=== PATIENT | male | born 1965 | race Caucasian/White ===

== ENCOUNTER 2019-02-08 17:09 | Emergency (ER) | payer BC ==
[~2019-02-08] VITALS: Ht 182.8 cm; Wt 100.2 kg
[~2019-02-08 17:09] MED LIST: ASPIRIN ADULT L81 M1 PO; KEFLEX500 MG PO; LEVAQUIN750 MG PO; MOTRIN800 MG PO; Motrin,Rufen800 MG PO; NAPROSYN500 MG PO; NORCO 325 MG-51 TAB PO; PROTONIX40 MG PO; VICODIN ES 7501 TAB PO; ZITHROMAX Z PA250 MG PO
== END 2019-02-08 19:25 | disposition home or self-care (01) ==
LOC: ED 17:09
DX: S61.210A Laceration without foreign body of right index finger without damage to nail, initial encounter (principal); Z87.891 Personal history of nicotine dependence; W22.8XXA Striking against or struck by other objects, initial encounter; Y93.89 Activity, other specified; Y92.89 Other specified places as the place of occurrence of the external cause; Y99.8 Other external cause status

== ENCOUNTER 2019-06-11 20:32 | Emergency (ER) | payer OTHER ==
[~2019-06-11] VITALS: Wt 99.8 kg
[2019-06-11] MEDS ORDERED: Motrin,Rufen800 MG PO (21:45)
== END 2019-06-11 22:24 | disposition home or self-care (01) ==
LOC: ED 20:32
DX: S91.312A Laceration without foreign body, left foot, initial encounter (principal); Z87.891 Personal history of nicotine dependence; W20.8XXA Other cause of strike by thrown, projected or falling object, initial encounter; Y93.89 Activity, other specified; Y92.89 Other specified places as the place of occurrence of the external cause; Y99.8 Other external cause status

== ENCOUNTER 2020-11-12 16:54 | Inpatient (IN) | payer BC ==
[~2020-11-12] VITALS: Ht 182.8 cm; Wt 91.8 kg
[2020-11-12 17:00] VITALS: BP 126/85
[2020-11-12 17:24] LABS: BASO % 0.4 % (0.0-1.0); EOS # 0.1 10*3/uL (0.0-0.4); EOS % 0.9 % (1.0-4.0); HEMATOCRIT 43.8 % (42.0-52.0); LYMPH # 3.3 10*3/uL (1.3-4.4); LYMPH % 31.5 % (27.0-41.0); MEAN CELL VOLUME 89.8 fl (80.0-94.0); MEAN CORPUSCULAR HGB 31.8 pg (27.0-31.0); MEAN CORPUSCULAR HGB CONC 35.4 g/dl (33.0-37.0); MEAN PLATELET VOLUME 9.4 fl (9.6-12.3); MONO # 0.5 10*3/uL (0.1-1.0); MONO % 4.5 % (3.0-9.0); NEUT # 6.4 10*3/uL (2.3-7.9); NEUT % 62.1 % (47.0-73.0); PLATELET COUNT AUTOMATED 252 10*3/uL (130-400); RED BLOOD COUNT 4.88 10*6/uL (4.50-5.90); RED CELL DISTRI WIDTH 12.1 % (0-14.5); WHITE BLOOD COUNT 10.3 10*3/uL (4.8-10.8)
[2020-11-12 17:44] LABS: ALBUMIN 4.2 gm/dl (3.1-4.5); ALKALINE PHOSPHATASE 64 U/L (45-117); BUN 20 mg/dl (7-24); CHLORIDE 106 mmol/L (98-107); CREATININE 1.38 mg/dL (0.70-1.30); POTASSIUM 3.3 mmol/L (3.5-5.1); SGOT/AST 13 IU/L (3-35); SGPT/ALT 22 U/L (12-78); SODIUM 139 mmol/L (136-145); TOTAL PROTEIN 7.5 gm/dL (6.4-8.2)
[2020-11-12 17:45] LABS: TROPONIN I < 0.015 ng/ml (<0.045)
[2020-11-12 18:00] VITALS: BP 116/80
[2020-11-12 19:57] VITALS: BP 116/75
[2020-11-12] MEDS ORDERED: SINGULAIR10 M1 PO (21:30)
[2020-11-12] MEDS ORDERED: FLONASE ALLERG9.9 ML NAS (21:31)
[2020-11-12 22:24] VITALS: BP 99/75
[2020-11-13 06:32] LABS: BASO % 0.5 % (0.0-1.0); EOS # 0.2 10*3/uL (0.0-0.4); EOS % 2.8 % (1.0-4.0); HEMATOCRIT 43.2 % (42.0-52.0); LYMPH # 2.8 10*3/uL (1.3-4.4); LYMPH % 36.2 % (27.0-41.0); MEAN CORPUSCULAR HGB 31.8 pg (27.0-31.0); MEAN CORPUSCULAR HGB CONC 33.8 g/dl (33.0-37.0); MEAN PLATELET VOLUME 9.6 fl (9.6-12.3); MONO # 0.4 10*3/uL (0.1-1.0); MONO % 5.8 % (3.0-9.0); NEUT # 4.1 10*3/uL (2.3-7.9); NEUT % 53.9 % (47.0-73.0); PLATELET COUNT AUTOMATED 199 10*3/uL (130-400); RED BLOOD COUNT 4.59 10*6/uL (4.50-5.90); RED CELL DISTRI WIDTH 12.6 % (0-14.5); WHITE BLOOD COUNT 7.6 10*3/uL (4.8-10.8)
[2020-11-13 06:39] LABS: BUN 22 mg/dl (7-24); CHLORIDE 111 mmol/L (98-107); CHOLESTEROL 192 mg/dL (<200); CREATININE 1.11 mg/dL (0.70-1.30); LDL CHOLESTEROL 111 mg/dL (9-159); SODIUM 143 mmol/L (136-145); TRIGLYCERIDES 123 mg/dl (<150)
[2020-11-13 06:55] LABS: MEAN CELL VOLUME 94.1 fl (80.0-94.0)
[2020-11-13 08:00] VITALS: BP 100/60; BP 102/61
[2020-11-13 12:00] VITALS: BP 125/67
[2020-11-13 16:00] VITALS: BP 114/74
[2020-11-13 20:00] VITALS: BP 111/74
[2020-11-14] VITALS: BP 112/72
[2020-11-14 07:38] VITALS: BP 120/68
== END 2020-11-14 15:32 | disposition home or self-care (01) | DRG 391 ==
LOC: ED 16:54 → EDHOLD 21:23 → 5E 21:23
PROVIDERS: Emergency Medicine; Internal Medicine; ADMIT Family Medicine; ATTEND Family Medicine
PROC: 4A02XM4 Measurement of Cardiac Total Activity, External Approach (ICD-10-PCS; principal; 2020-11-14)
PROC: 3E073KZ Introduction of Other Diagnostic Substance into Coronary Artery, Percutaneous Approach (ICD-10-PCS; 2020-11-14)
DX: K21.9 Gastro-esophageal reflux disease without esophagitis (principal); N17.0 Acute kidney failure with tubular necrosis; F41.9 Anxiety disorder, unspecified; E83.41 Hypermagnesemia; I34.0 Nonrheumatic mitral (valve) insufficiency; E87.6 Hypokalemia; I51.7 Cardiomegaly; E80.6 Other disorders of bilirubin metabolism; E66.3 Overweight; Z83.3 Family history of diabetes mellitus; Z82.5 Family history of asthma and other chronic lower respiratory diseases; Z79.899 Other long term (current) drug therapy; Z81.2 Family history of tobacco abuse and dependence; Z68.27 Body mass index [BMI] 27.0-27.9, adult

== ENCOUNTER 2021-05-17 03:56 | Emergency (ER) | payer BC ==
[~2021-05-17] VITALS: Ht 182.8 cm; Wt 93.9 kg
[~2021-05-17 03:56] MED LIST changes: +FLONASE ALLERG9.9 ML NAS; +SINGULAIR10 M1 PO
[2021-05-17] MEDS ORDERED: SERTRALINE HYDR50 MG PO (04:09)
[2021-05-17 04:27] LABS: BILIRUBIN Negative (Negative); BLOOD 3+ (Negative); CLARITY Clear (Clear); COLOR Yellow (Yellow); GLUCOSE Negative (Negative); KETONE Negative (Negative); LEUKO ESTERASE Negative (Negative); NITRITE Negative (Negative)
[2021-05-17 04:37] LABS: RBC 41-50 rbc/hpf (0-2)
[2021-05-17 04:54] LABS: BASO # 0.1 10*3/uL (0.0-0.1); BASO % 0.5 % (0.0-1.0); EOS # 0.2 10*3/uL (0.0-0.4); EOS % 1.4 % (1.0-4.0); HEMATOCRIT 41.2 % (42.0-52.0); LYMPH # 1.7 10*3/uL (1.3-4.4); LYMPH % 15.5 % (27.0-41.0); MEAN CELL VOLUME 92.2 fl (80.0-94.0); MEAN CORPUSCULAR HGB 31.8 pg (27.0-31.0); MEAN CORPUSCULAR HGB CONC 34.5 g/dl (33.0-37.0); MEAN PLATELET VOLUME 9.5 fl (9.6-12.3); MONO # 0.3 10*3/uL (0.1-1.0); MONO % 2.5 % (3.0-9.0); NEUT # 8.7 10*3/uL (2.3-7.9); NEUT % 79.5 % (47.0-73.0); PLATELET COUNT AUTOMATED 214 10*3/uL (130-400); RED BLOOD COUNT 4.47 10*6/uL (4.50-5.90); RED CELL DISTRI WIDTH 12.4 % (0-14.5)
[2021-05-17 05:14] LABS: ALBUMIN 3.9 gm/dl (3.1-4.5); ALKALINE PHOSPHATASE 52 U/L (45-117); BUN 17 mg/dl (7-24); CHLORIDE 109 mmol/L (98-107); SGOT/AST 12 IU/L (3-35); SGPT/ALT 24 U/L (12-78); SODIUM 143 mmol/L (136-145)
[2021-05-17] MEDS ORDERED: OXYCODONE HCL5 MG PO (06:18)
== END 2021-05-17 06:34 | disposition home or self-care (01) ==
LOC: ED 03:56
PROVIDERS: Emergency Medicine
DX: N13.2 Hydronephrosis with renal and ureteral calculous obstruction (principal); Z79.899 Other long term (current) drug therapy; Z87.891 Personal history of nicotine dependence